=== PATIENT | female | born 2000 | race Caucasian/White ===

== ENCOUNTER 2022-12-23 21:50 | Emergency (ER) | payer BC ==
--- OUTSIDE RECORDS SUMMARY | 2022-12-23 21:54 | XMS REPORT | Continuity of Care Document ---
:2000 Author Organization [facility] t Address [address] [facility] [address] [place] [address] Care Team Providers Name Role Phone [email or web address]_Jacinto Attending Clinician Unavailable Danial Garcia Attending Clinician [phone] Jamie VANG, Nita Constantino Attending Clinician [phone] NITA AYALA Attending Clinician Unavailable GERARD_[email or web address]_Jacinto Admitting Clinician Unavailable Payers Payer Name Policy Type Policy Number Effective Date Expiration Date S carine [place]: BS [id number] 2020 2022 00:00:00 [place] (PP[place] 00:00:00 Problems Condition Condition Condition Status Onset Resolution Last Treating Co mments Source Name Details Category Date Date Treatment Clinician Date Hypothyroi Hypothyroi Problem Active 2020-03 [facility] dism dism 04-03 Medical 00:00: 00 Anxiety Anxiety Problem Active 2020-03 [facility] 04-03 [facility] 00:00: 00 Posttrauma Posttrauma Problem Active 2020-03 [facility] tic stress tic Stress 04-03 Me dical disorder Disorder 00:00: 00 Depressive Depressive Problem Active 2020-03 [facility] disorder Disorder 17 Medica l 00:00: 00 Attention Attention Problem Active 2020-03 [facility] via deficit Deficit 04-03 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 Social History Social Habit Start Date Stop Date Quantity Comments Source Exposure to Not sure Lisette fofana SARS-CoV-2 (event) Sex Assigned At [birth year] F Lisette finleyold 00:00:00 00:00:00 Smoking Status Start Date Stop Date Source Tobacco smoking consumption unknown Lisette Trinidad Never Smoker [facility] Medications Ordered Filled Start Stop Current Ordering Indication Dosage Frequency Signature Comments Components Source Medication Medication Date Date Medication? Clinician (SIG) Name Name hydrOXYzine Yes [id number] 25mg QD Take 1 Lisette HCl 25 MG 9-16 tablet (25 Seyb old oral Tablet 00:00: mg total) 00 by mouth nightly as needed for itching Levothyroxi Yes [id number] 50ug Take 1 Lisette ne Sodium 9-16 tablet (50 Seyb old 50 MCG oral 00:00: mcg total) Tablet 00 by mouth daily Sertraline Yes [id number] 100mg Take 1 Lisette HCl 100 MG 9-16 tablet Seybold oral Tablet 00:00: (100 mg 00 total) by mouth daily sertraline sertraline No sertraline [facility] 100 mg 100 mg 100 mg Medical tablet TAKE tablet TAKE tablet 1 TABLET BY 1 TABLET BY TAKE 1 MOUTH EVERY MOUTH EVERY TABLET BY DAY FOR 90 DAY FOR 90 MOUTH DAYS DAYS EVERY DAY FOR 90 DAYS sertraline sertraline No sertraline [facility] 50 mg 50 mg 50 mg Medical tablet TAKE tablet TAKE tablet 1 TABLET BY 1 TABLET BY TAKE 1 MOUTH ONCE MOUTH ONCE TABLET BY A DAY A DAY MOUTH ONCE TOGETHER TOGETHER A DAY WITH 100 MG WITH 100 MG TOGETHER 90 90 WITH 100 MG 90 Amphetamine Amphetamine No Amphetamin [facility] Salt Combo Salt Combo e Salt M edical Combo azithromyci azithromyci No azithromyc [facility] n 500 mg n 500 mg in 500 mg Me dical tablet tablet tablet Belsomra 20 Belsomra 20 No Belsomra [facility] mg tablet mg tablet 20 mg Medi troy tablet dextroamphe dextroamphe No dextroamph [facility] tamine-amph tamine-amph etamine-am Medical etamine 20 etamine 20 phetamine mg tablet 1 mg tablet 1 20 mg TABLET TABLET tablet 1 ORALLY ONCE ORALLY ONCE TABLET A DAY TAKE A DAY TAKE ORALLY WITH WITH ONCE A DAY ADDERALL XR ADDERALL XR TAKE WITH 30MG 90 30MG 90 ADDERALL DAYS DAYS XR 30MG 90 DAYS dextroamphe dextroamphe No dextroamph [facility] tamine-amph tamine-amph etamine-am Medical etamine 30 etamine 30 phetamine mg tablet mg tablet 30 mg TAKE 1 TAKE 1 tablet TABLET BY TABLET BY TAKE 1 MOUTH EVERY MOUTH EVERY TABLET BY DAY DAY MOUTH EVERY DAY dextroamphe dextroamphe No dextroamph [facility] tamine-amph tamine-amph etamine-am Medical etamine ER etamine ER phetamine 20 mg 24hr 20 mg 24hr ER 20 mg capsule,ext capsule,ext 24hr end release end release capsule,ex tend release dextroamphe dextroamphe No dextroamph [facility] tamine-amph tamine-amph etamine-am Medical etamine ER etamine ER phetamine 30 mg 24hr 30 mg 24hr ER 30 mg capsule,ext capsule,ext 24hr end release end release capsule,ex TAKE 1 TAKE 1 tend CAPSULE BY CAPSULE BY release MOUTH EVERY MOUTH EVERY TAKE 1 MORNING MORNING CAPSULE BY MOUTH EVERY MORNING doxycycline doxycycline No doxycyclin [facility] hyclate 100 hyclate 100 e hyclate Medical mg capsule mg capsule 100 mg TAKE 1 TAKE 1 capsule CAPSULE BY CAPSULE BY TAKE 1 MOUTH TWICE MOUTH TWICE CAPSULE BY A DAY FOR A DAY FOR MOUTH 10 DAYS 10 DAYS TWICE A DAY FOR 10 DAYS hydroxychlo hydroxychlo No hydroxychl [facility] roquine 200 roquine 200 oroquine Medical mg tablet mg tablet 200 mg tablet ivermectin ivermectin No ivermectin [facility] 3 mg tablet 3 mg tablet 3 mg M edical TAKE 4 TAKE 4 tablet TABLETS TABLETS TAKE 4 DAILY FOR 5 DAILY FOR 5 TABLETS DAYS DAYS DAILY FOR 5 DAYS levothyroxi levothyroxi No levothyrox [facility] ne 75 mcg ne 75 mcg ine 75 mcg Medical tablet TAKE tablet TAKE tablet 1 TABLET BY 1 TABLET BY TAKE 1 MOUTH EVERY MOUTH EVERY TABLET BY DAY IN THE DAY IN THE MOUTH MORNING ON MORNING ON EVERY DAY EMPTY EMPTY IN THE STOMACH FOR STOMACH FOR MORNING ON 90 DAYS 90 DAYS EMPTY STOMACH FOR 90 DAYS levothyroxi levothyroxi No levothyrox [facility] ne 88 mcg ne 88 mcg ine 88 mcg Medical tablet TAKE tablet TAKE tablet 1 TABLET BY 1 TABLET BY TAKE 1 MOUTH EVERY MOUTH EVERY TABLET BY DAY IN THE DAY IN THE MOUTH MORNING ON MORNING ON EVERY DAY EMPTY EMPTY IN THE STOMACH FOR STOMACH FOR MORNING ON 90 DAYS 90 DAYS EMPTY STOMACH FOR 90 DAYS Mirena 20 Mirena 20 No 1device Mirena 20 [facility] mcg/24 mcg/24 (s) mcg/24 Medical hours (7 hours (7 hours (7 yrs) 52 mg yrs) 52 mg yrs) 52 mg intrauterin intrauterin intrauteri e device e device ne device Take 1 Take 1 Take 1 device by device by device by intrauterin intrauterin intrauteri e route as e route as ne route directed directed as for 1 day. for 1 day. directed for 1 day. multivitami multivitami No multivitam [facility] n n in Medical sertraline sertraline No sertraline [facility] 100 mg 100 mg 100 mg Medical tablet TAKE tablet TAKE tablet 1 TABLET BY 1 TABLET BY TAKE 1 MOUTH EVERY MOUTH EVERY TABLET BY DAY FOR 90 DAY FOR 90 MOUTH DAYS DAYS EVERY DAY FOR 90 DAYS sertraline sertraline No sertraline [facility] 50 mg 50 mg 50 mg Medical tablet TAKE tablet TAKE tablet 1 TABLET BY 1 TABLET BY TAKE 1 MOUTH ONCE MOUTH ONCE TABLET BY A DAY A DAY MOUTH ONCE TOGETHER TOGETHER A DAY WITH 100 MG WITH 100 MG TOGETHER 90 90 WITH 100 MG 90 Amphetamine Amphetamine No Amphetamin [facility] Salt Combo Salt Combo e Salt M edical Combo azithromyci azithromyci No azithromyc [facility] n 500 mg n 500 mg in 500 mg Me dical tablet tablet tablet Belsomra 20 Belsomra 20 No Belsomra [facility] mg tablet mg tablet 20 mg Medi troy tablet dextroamphe dextroamphe No dextroamph [facility] tamine-amph tamine-amph etamine-am Medical etamine 20 etamine 20 phetamine mg tablet 1 mg tablet 1 20 mg TABLET TABLET tablet 1 ORALLY ONCE ORALLY ONCE TABLET A DAY TAKE A DAY TAKE ORALLY WITH WITH ONCE A DAY ADDERALL XR ADDERALL XR TAKE WITH 30MG 90 30MG 90 ADDERALL DAYS DAYS XR 30MG 90 DAYS dextroamphe dextroamphe No dextroamph [facility] tamine-amph tamine-amph etamine-am Medical etamine 30 etamine 30 phetamine mg tablet 1 mg tablet 1 30 mg TABLET TABLET tablet 1 ORALLY ONCE ORALLY ONCE TABLET A DAY DX A DAY DX ORALLY F90.9 TAKE F90.9 TAKE ONCE A DAY WITH XR WITH XR DX F90.9 30MG 30 30MG 30 TAKE WITH DAYS DAYS XR 30MG 30 DAYS dextroamphe dextroamphe No dextroamph [facility] tamine-amph tamine-amph etamine-am Medical etamine ER etamine ER phetamine 30 mg 24hr 30 mg 24hr ER 30 mg capsule,ext capsule,ext 24hr end release end release capsule,ex 1 CAPSULE 1 CAPSULE tend IN THE IN THE release 1 MORNING MORNING CAPSULE IN ORALLY ONCE ORALLY ONCE THE A DAY DX A DAY DX MORNING F90.9 30 F90.9 30 ORALLY DAYS DAYS ONCE A DAY DX F90.9 30 DAYS hydrocodone hydrocodone No hydrocodon [facility] 10 10 e 10 Medical mg-acetamin mg-acetamin mg-acetami ophen 325 ophen 325 nophen 325 mg tablet mg tablet mg tablet TAKE 1-2 TAKE 1-2 TAKE 1-2 TABLETS BY TABLETS BY TABLETS BY MOUTH EVERY MOUTH EVERY MOUTH 4 HOURS 4 HOURS EVERY 4 HOURS hydroxychlo hydroxychlo No hydroxychl [facility] roquine 200 roquine 200 oroquine Medical mg tablet mg tablet 200 mg tablet ivermectin ivermectin No ivermectin [facility] 3 mg tablet 3 mg tablet 3 mg M edical TAKE 4 TAKE 4 tablet TABLETS TABLETS TAKE 4 DAILY FOR 5 DAILY FOR 5 TABLETS DAYS DAYS DAILY FOR 5 DAYS levothyroxi levothyroxi No levothyrox [facility] ne 100 mcg ne 100 mcg ine 100 Medical tablet TAKE tablet TAKE mcg tablet 1 TABLET BY 1 TABLET BY TAKE 1 MOUTH EVERY MOUTH EVERY TABLET BY DAY IN THE DAY IN THE MOUTH MORNING ON MORNING ON EVERY DAY EMPTY EMPTY IN THE STOMACH FOR STOMACH FOR MORNING ON 90 DAYS 90 DAYS EMPTY STOMACH FOR 90 DAYS Mirena 20 Mirena 20 No 1device Mirena 20 [facility] mcg/24 mcg/24 (s) mcg/24 Medical hours (8 hours (8 hours (8 yrs) 52 mg yrs) 52 mg yrs) 52 mg intrauterin intrauterin intrauteri e device e device ne device Take 1 Take 1 Take 1 device by device by device by intrauterin intrauterin intrauteri e route as e route as ne route directed directed as for 1 day. for 1 day. directed for 1 day. multivitami multivitami No multivitam [facility] n n in Medical Vital Signs Vital Name Observation Time Observation Value Comments Source BP Diastolic 2022-02-14 00:00:00 76 mm[Hg] [facility] Hel[facility] kvng Height 2022-02-14 00:00:00 63 [in_i] [facility] ed[facility] BMI (Body Mass Index) 2022-02-14 00:00:00 26.9 kg/m2 [facility] BP Systolic 2022-02-14 00:00:00 113 mm[Hg] [facility] Body Weight 2022-02-14 00:00:00 152 [lb_av] [facility] ed[facility] Procedures Procedure Date / Time Performed Performing Clinician [facility] e Dilation and Curettage 2018-04-18 00:00:00 [facility] Oral Surgery Procedure [facility] Plan of Care Planned Activity Planned Date Details Comments Source Diagnostic Test 2022-02-14 [place] IgE Ab [facility] Helm edical Pending 00:00:00 [Units/volume] in Serum [code = 6195-2] Diagnostic Test 2022-02-14 Indirect antiglobulin [facility] Medical Pending 00:00:00 test.IgG specific reagent [Presence] in Serum or Plasma [code = 1005-8] Diagnostic Test 2022-02-14 HBsAg (hepatitis B [facility] Pending 00:00:00 surface Ag), serum [code = HBsAg (hepatitis B surface Ag), serum] Diagnostic Test 2022-02-14 HIV 1+2 AB + HIV 1 p24 [facility] Pending 00:00:00 Ag, qualitative immunoassay, serum [code = HIV 1+2 AB + HIV 1 p24 Ag, qualitative immunoassay, serum] Diagnostic Test 2022-02-14 RPR (rapid plasma [facility] Pending 00:00:00 reagin), serum [code = RPR (rapid plasma reagin), serum] Diagnostic Test 2022-02-14 hepatitis C Ab, serum [facility] Pending 00:00:00 [code = hepatitis C Ab, serum] Future Appointment 2023-02-14 Danial Garcia [address] [facility] 00:00:00 [place] [address] Encounters Start End Encounter Admission Attending Care Care Encounter Source Date/Time Date/Time Type Type Clinicians Facility Department ID 2022-02-14 2022-02-14 Outpatient _[facility]_ PRIV PRIV [id number] [facility] 00:00:00 00:00:00 Eddie [id number] Medic al 2022-02-14 2022-02-[address] - [facility] [id number] [facility] 00:00:00 00:00:00 [facility] Medic lopez Garcia GC_SWLISA_ : [address], [place] [address] , Ph. 2021-11-14 2021-11-14 Outpatient GC_[facility]_ PRIV PRIV [id number] [facility] 00:00:00 00:00:00 Eddie [id number] Medic al 2021-10-30 2021-10-30 Outpatient GC_[facility]_ PRIV PRIV [id number] [facility] 00:00:00 00:00:00 Eddie [id number] Medic al 2021-10-02 2021-10-02 Outpatient GC_[facility]_ PRIV PRIV [id number] [facility] 12:57:00 12:57:00 Eddie [id number] Medic al 2021-09-14 2021-09-14 Outpatient GC_[facility]_ PRIV PRIV [id number] [facility] 07:00:00 07:00:00 Eddie [id number] Medic al 2021-09-13 2021-09-13 Outpatient GC_[facility]_ PRIV PRIV [id number] [facility] 11:15:00 11:15:00 Eddie [id number] Medic al 2021-09-13 2021-09-13 Outpatient Jose, PRIV PRIV [id number] 00:00:00 00:00:00 Danial [id number] [place] [id number] 2021-09-13 2021-09-13 Danial [facility] 00:00:00 00:00:00 [facility] Medic al GERARD Garcia_MONIQUE_ : [address], [place] [address] , Ph. 2021-09-11 2021-09-11 Outpatient GC_[facility]_ PRIV PRIV [id number] [facility] 04:42:00 04:42:00 Eddie [id number] Medic al 2021-09-07 2021-09-07 Outpatient GC_[facility]_ PRIV PRIV [id number] [facility] 01:45:00 01:45:00 Eddie [id number] Medic al 2021-09-06 2021-09-06 Outpatient GC_[facility]_ PRIV PRIV [id number] [facility] 02:46:00 02:46:00 Eddie [id number] Medic al 2021-02-01 2021-02-01 Outpatient GC_[facility]_ PRIV PRIV [id number] [facility] 06:11:00 06:11:00 Eddie [id number] Medic al 2020-12-01 2020-12-01 [facility] Enzo Ayala [id number] Lisette 11:19:43 12:05:05 ne Nita Griffin [id number] Se samuel Jasonnela [id number] 2020-12-01 2020-12-01 Outpatient LISETTE AYALA [id number] Lisette 00:00:00 00:00:00 NITA fofana Results Test Description Test Time Test Comments Results Result Comments Source HPV DNA, genotypes 16+18, genital 2021-02-24 00:00:00 Test Item Value Reference Range Interpretation Comme nts HPV high risk DNA (non 16/18) (test code = HPV high not detected no t detected risk DNA (non 16/18)) HPV high risk DNA type 16 (test code = HPV high risk not detected n ot detected DNA type 16) HPV high risk DNA type 18 (test code = HPV high risk not detected n ot detected DNA type 18) [facility] [id number] 00:00:00 Test Item Value Reference Range Interpretation Comments LMP date: (test code = 02/01/2021 LMP date:) Pap, liquid-based asc-US nilm A (test code = Pap, liquid-based) source (liquid-based cervical (which cytology): (test code includes endocervical) = source (liquid-based cytology):) [facility]
--- NOTE | 2022-12-23 22:30 | RAD REPORT ---
EXAM DESCRIPTION: RAD - Chest Pa And Lat (2 Views) - 12/23/2022 10:25 pm CLINICAL HISTORY: CHEST PAIN COMPARISON: <Comparisons> FINDINGS: Lines: None. Lungs: No evidence of edema or pneumonia. Pleural: No significant pleural effusions or pneumothorax. Cardiac: The heart size is within normal limits. Mediastinum: Within normal limits. Bones: No acute fractures. Other: None IMPRESSION: No acute cardiopulmonary disease.
[2022-12-23 22:33] LABS: Absolute Lymphocytes (CBC) 4.1 K/uL (0.7-4.9); Hematocrit 43.7 % (36.0-45.0); Lymphocytes % 46.2 % (15.3-44.8); MCV 81.8 fL (80-100); MPV 9.1 fL (7.6-11.3); Platelets 252 thou/uL (152-406); RBC Red Blood Cell Count 5.34 M/uL (3.86-4.86)
[2022-12-23] MEDS ORDERED: ASPIRIN 81 MG CHEWABLE TABLET ONE (22:49)
[2022-12-23] MEDS ORDERED: NA CHLORIDE 0.9% 500 ML ONE (22:50)
[2022-12-23 22:52] LABS: Bilirubin Direct 0.2 mg/dL (0-0.2); Bilirubin Indirect, Calculated 0.4 mg/dL (0.2-0.8); Bilirubin Total 0.6 mg/dL (0.2-1.0); Magnesium 2.1 mg/dL (1.6-2.4); Potassium 3.1 mEq/L (3.5-5.1); Protein, Total 7.3 g/dL (6.4-8.2); Troponin High Sensitivity 3.3 pg/mL (<58.9)
[2022-12-23 23:25] LABS: Blood Morphology Comment NOT SEEN (NOT SEEN); Platelet Estimate ADEQ
[2022-12-23 23:32] LABS: Barbiturates NEGATIVE (NEGATIVE); Benzodiazepines NEGATIVE (NEGATIVE); Cocaine NEGATIVE (NEGATIVE); METHAMPHETAM POSITIVE (NEGATIVE); Opiates NEGATIVE (NEGATIVE); Phencyclidine NEGATIVE (NEGATIVE); THC Cannibis POSITIVE (NEGATIVE)
[2022-12-23] MEDS ORDERED: POTASSIUM 25 MEQ EFFERV TAB ONE (23:32)
[2022-12-23 23:33] LABS: Urine Bacteria None Seen /HPF (<20); Urine Bilirubin NEGATIVE (Negative); Urine Blood Negative (Negative); Urine Clarity Turbid (Clear); Urine Color Light-Yellow (Yellow); Urine Glucose NEGATIVE (Negative); Urine Mucus 1+ /HPF (None Seen); Urine Protein NEGATIVE (Negative); Urine RBC None Seen /HPF (None Seen); Urine Urobilinogen Normal (Normal); Urine pH 5.5 (5.0-7.0)
[2022-12-24 00:02] LABS: Methadone ND (NEGATIVE)
--- NOTE | 2022-12-24 00:45 | ER ---
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 Its a burning pain. 22:03 Coronavirus screen: At this time, the client does not indicate any symptoms associated jb4 with coronavirus-19. Ebola Screen: No symptoms or risks identified at this time. Initial Sepsis Screen: Does the patient meet any 2 criteria? No. Patient's initial sepsis screen is negative. Does the patient have a suspected source of infection? No. Patient's initial sepsis screen is negative. Risk Assessment: Do you want to hurt yourself or someone else? Patient reports no desire to harm self or others. Onset of symptoms was December 23, 2022. Transition of care: patient was not received from another setting of care. 22:03 Method Of Arrival: Wheelchair jb4 22:03 Acuity: YAN 3 jb4 Historical: - Allergies: 22:05 No Known Allergies; jb4 - PMHx: 22:05 Anxiety; depressive disorder; PTSD; skull fracture; jb4 - Family history:: not pertinent. Screenin/09 00:54 [facility] ED Fall Risk Assessment (Adult) History of falling in the last 3 months, jb4 including since admission No falls in past 3 months (0 pts) Confusion or Disorientation No (0 pts). Abuse screen: Denies threats or abuse. Nutritional screening: No deficits noted. Tuberculosis screening: No symptoms or risk factors identified. Assessment: 12/23 22:05 General: Appears distressed, uncomfortable, Behavior is calm, cooperative, appropriate jb4 for age. Pain: Complains of pain in chest Pain does not radiate. Pain currently is 8 out of 10 on a pain scale. Quality of pain is described as burning, Pain began 1 hour ago. 22:05 Neuro: Level of Consciousness is awake, alert, obeys commands, Oriented to person, jb4 place, time, situation. Cardiovascular: Patient's skin is warm and dry. Respiratory: Airway is patent Respiratory effort is even, unlabored, Respiratory pattern is regular, symmetrical. GI: No signs and/or symptoms were reported involving the gastrointestinal system. : No signs and/or symptoms were reported regarding the genitourinary system. EENT: No signs and/or symptoms were reported regarding the EENT system. Derm: Skin is intact, Skin is pink, warm \T\ dry. Musculoskeletal: Circulation, motion, and sensation intact. Range of motion: intact in all extremities. 23:37 Reassessment: Patient appears in no apparent distress at this time. Patient and/or jb4 family updated on plan of care and expected duration. Pain level reassessed. Patient is alert, oriented x 3, equal unlabored respirations, skin warm/dry/pink. Patient states feeling better. 12/24 00:54 Reassessment: Patient appears in no apparent distress at this time. Patient and/or jb4 family updated on plan of care and expected duration. Pain level reassessed. Patient is alert, oriented x 3, equal unlabored respirations, skin warm/dry/pink. Vital Signs: 12/23 22:11 BP 146 / 89; Pulse 120; Resp 17 S; Temp 98.8(O); Pulse Ox 98% on R/A; Weight 61.23 kg; rv1 Height 5 ft. 3 in. ; Pain 12/25; 23:37 BP 111 / 70; Pulse 79; Resp 16; Pulse Ox 98% on R/A; jb4 12/24 00:54 BP 108 / 64; Pulse 68; Resp 16; Pulse Ox 98% on R/A; jb4 12/23 22:11 Body Mass Index 23.91 (61.23 kg, 160.02 cm) rv1 12/23 22:11 Pain Scale: Adult rv1 ED Course: 12/23 21:59 Patient arrived in ED. jj6 22:06 Landon Bean MD is Attending Physician. ata 22:06 Ad Mayfield, RN is Primary Nurse. bp 22:26 Chest Pa And Lat (2 Views) XRAY In Process Unspecified. EDMS 22:37 UDS Sent. oe 22:37 PREGU Sent. oe 22:37 Urinalysis w/ reflexes Sent. oe 23:31 Triage completed. jb4 12/24 00:17 CT Chest For PE Angio In Process Unspecified. EDMS 00:54 No provider procedures requiring assistance completed. IV discontinued, intact, jb4 bleeding controlled, No redness/swelling at site. Pressure dressing applied. Patient maintains SpO2 saturation greater than 95% on room air. 00:54 Patient has correct armband on for positive identification. Placed in gown. Bed in low jb4 position. Call light in reach. Side rails up X 1. Side rails up X2. Client placed on continuous cardiac and pulse oximetry monitoring. NIBP monitoring applied. assembly press operator on. Administered Medications: 12/23 22:48 Drug: Aspirin PO Chewable Tablet 81 mg PO once Route: PO; jb4 22:48 Drug: NS 0.9% IV 500 ml IV at bolus once Route: IV; Rate: bolus; Site: right jb4 antecubital; 23:28 Drug: Potassium PO Effervescent Tablet 50 mEq PO once; dissolve in 4 ounces of water or bp juice Route: PO; Medication: 12/24 00:54 VIS not applicable for this client. jb4 Outcome: 00:44 Discharge ordered by MD. berumen 00:54 Discharged to home ambulatory, with significant other, jb4 00:54 Condition: stable 00:54 Discharge instructions given to patient, Instructed on discharge instructions, follow up and referral plans. medication usage, Demonstrated understanding of instructions, follow-up care, medications, Prescriptions given X 3, 00:58 Patient left the ED. jb4 Signatures: Dispatcher [employer] EDFL Landon Bean MD MD cha Bryson, James, RN RN jb4 Luis Manuel Carcamo Brian, VERNON RN Patria Owen6 Jessica Cai rv1
--- NOTE | 2022-12-24 00:45 | EDPHYS ---
[facility] Name: Serene Roberts Age: 22 yrs Sex: Female : 2000 Arrival Date: 12/23/2022 Time: 21:50 Bed 5 Private MD: ED Physician Landon Bean HPI: 12/23 23:02 This 22 yrs old Female presents to ER via Unassigned with complaints of Chest ata Pain, Shortness Of Breath. 23:02 The patient or guardian reports chest pain that is located primarily in the substernal ata area, anterior chest wall, bilaterally. The pain does not radiate. Associated signs and symptoms: Pertinent positives: shortness of breath. The chest pain is described as sharp. Duration: The patient or guardian reports multiple episodes, that wax and wane. Modifying factors: The symptoms are alleviated by remaining still, the symptoms are aggravated by cough, deep breath, movement. Severity of pain: At its worst the pain was mild in the emergency department the pain is unchanged. The patient has not experienced similar symptoms in the past. Historical: - Allergies: 22:05 No Known Allergies; jb4 - PMHx: 22:05 Anxiety; depressive disorder; PTSD; skull fracture; jb4 - Family history:: not pertinent. ROS: 23:02 Constitutional: Negative for fever, chills, and weight loss, Eyes: Negative for injury, ata pain, redness, and discharge, ENT: Negative for injury, pain, and discharge, Neck: Negative for injury, pain, and swelling, Abdomen/GI: Negative for abdominal pain, nausea, vomiting, diarrhea, and constipation, Back: Negative for injury and pain, : Negative for injury, bleeding, discharge, and swelling, MS/Extremity: Negative for injury and deformity, Skin: Negative for injury, rash, and discoloration, Neuro: Negative for headache, weakness, numbness, tingling, and seizure, Psych: Negative for depression, anxiety, suicide ideation, homicidal ideation, and hallucinations, Allergy/Immunology: Negative for hives, rash, and allergies, Endocrine: Negative for neck swelling, polydipsia, polyuria, polyphagia, and marked weight changes, Hematologic/Lymphatic: Negative for swollen nodes, abnormal bleeding, and unusual bruising, 23:02 Cardiovascular: Positive for chest pain, 23:02 Respiratory: Positive for cough, shortness of breath, Exam: 23:02 Constitutional: This is a well developed, well nourished patient who is awake, alert, ata and in no acute distress. Head/Face: Normocephalic, atraumatic. Eyes: Pupils equal round and reactive to light, extra-ocular motions intact. Lids and lashes normal. Conjunctiva and sclera are non-icteric and not injected. Cornea within normal limits. Periorbital areas with no swelling, redness, or edema. ENT: Nares patent. No nasal discharge, no septal abnormalities noted. Tympanic membranes are normal and external auditory canals are clear. Oropharynx with no redness, swelling, or masses, exudates, or evidence of obstruction, uvula midline. Mucous membranes moist. Neck: Trachea midline, no thyromegaly or masses palpated, and no cervical lymphadenopathy. Supple, full range of motion without nuchal rigidity, or vertebral point tenderness. No Meningismus. Chest/axilla: Normal chest wall appearance and motion. Nontender with no deformity. No lesions are appreciated. Cardiovascular: Regular rate and rhythm with a normal S1 and S2. No gallops, murmurs, or rubs. Normal PMI, no JVD. No pulse deficits. Respiratory: Lungs have equal breath sounds bilaterally, clear to auscultation and percussion. No rales, rhonchi or wheezes noted. No increased work of breathing, no retractions or nasal flaring. Abdomen/GI: Soft, non-tender, with normal bowel sounds. No distension or tympany. No guarding or rebound. No evidence of tenderness throughout. Back: No spinal tenderness. No costovertebral tenderness. Full range of motion. Skin: Warm, dry with normal turgor. Normal color with no rashes, no lesions, and no evidence of cellulitis. MS/ Extremity: Pulses equal, no cyanosis. Neurovascular intact. Full, normal range of motion. Neuro: Awake and alert, GCS 15, oriented to person, place, time, and situation. Cranial nerves II-XII grossly intact. Motor strength 5/5 in all extremities. Sensory grossly intact. Cerebellar exam normal. Normal gait. Psych: Awake, alert, with orientation to person, place and time. Behavior, mood, and affect are within normal limits. 23:02 ECG was reviewed by the Attending Physician. Vital Signs: 22:11 BP 146 / 89; Pulse 120; Resp 17 S; Temp 98.8(O); Pulse Ox 98% on R/A; Weight 61.23 kg; rv1 Height 5 ft. 3 in. ; Pain 10/; 23:37 BP 111 / 70; Pulse 79; Resp 16; Pulse Ox 98% on R/A; jb4 12/24 00:54 BP 108 / 64; Pulse 68; Resp 16; Pulse Ox 98% on R/A; jb4 12/23 22:11 Body Mass Index 23.91 (61.23 kg, 160.02 cm) rv1 12/23 22:11 Pain Scale: Adult rv1 MDM: 12/23 22:07 Patient medically screened. ata 23:07 Differential diagnosis: abnormal EKG, acute myocardial infarction, acute pericarditis, ata anxiety, chest wall pain, Cholelithiasis costochondritis, esophagitis, gastritis, pancreatitis, peptic ulcer disease, pericarditis, pleurisy, pneumonia, pulmonary embolus, stable angina, thoracic aortic disection, unstable angina. HEART Score: History: Slightly Suspicious (0), ECG: Normal (0), Age: < or = 45 years (0), Risk Factors: No Risk Factors Known (0), Troponin: < or = 1 x Normal Limit (0), Total Score = 0. MAIKOL Risk Score: TOTAL SCORE = 0. Data reviewed: vital signs, nurses notes, lab test result(s), EKG, radiologic studies, CT scan, plain films. Consideration of Admission/Observation Escalation of care including admission/observation considered. I considered the following discharge prescriptions or medication management in the emergency department Medications were administered in the Emergency Department. See MAR. Independent interpretation of the following test(s) in the Emergency Department EKG: See my EKG interpretation above. Test considered but Not performed: Ultrasound no 2 d echo. Historians other than the Patient: Spouse/Significant Other: significat other. 12/23 22:07 Order name: Basic Metabolic Panel; Complete Time: 23:00 ata 12/23 21:07 Order name: CBC with Diff; Complete Time: 23:43 ata 12/23 21:07 Order name: D-Dimer; Complete Time: 23:17 ata 12/23 21:07 Order name: LFT's; Complete Time: 23:00 ata 10/08 22:07 Order name: Magnesium; Complete Time: 23:00 ata 12/23 22:07 Order name: NT PRO-BNP; Complete Time: 23:00 ata 12/23 22:07 Order name: Troponin HS; Complete Time: 23:00 ata 12/23 22:07 Order name: Urinalysis w/ reflexes; Complete Time: 23:43 ata 12/23 22:07 Order name: PREGU; Complete Time: 23:43 ata 12/23 22:07 Order name: UDS; Complete Time: 00:40 ata 12/23 22:40 Order name: Manual Differential; Complete Time: 23:43 EDMS 12/23 22:07 Order name: Chest Pa And Lat (2 Views) XRAY; Complete Time: 23:00 ata 12/23 23:01 Order name: CT Chest For PE Angio ata 12/23 22:07 Order name: EKG; Complete Time: 22:08 ata 12/23 22:07 Order name: Cardiac monitoring; Complete Time: 22:23 ata 12/23 22:07 Order name: EKG - Nurse/Tech; Complete Time: 22:23 ata 12/23 22:07 Order name: IV Saline Lock; Complete Time: 22:23 ata 12/23 22:07 Order name: Labs collected and sent; Complete Time: 22:23 ata 12/23 22:07 Order name: O2 Per Protocol; Complete Time: 22:23 ata 12/23 22:07 Order name: O2 Sat Monitoring; Complete Time: 22:23 ata 12/23 23:01 Order name: PO challenge: juice; Complete Time: 23:18 ata EC:02 Rate is 120 beats/min. Rhythm is regular. QRS [place] is Normal. [place] interval is normal. ata QRS interval is normal. QT interval is normal. No Q waves. T waves are Normal. No ST changes noted. Clinical impression: Sinus tachycardia and No evidence of ischemia. Interpreted by me. Reviewed by me. Administered Medications: 22:48 Drug: Aspirin PO Chewable Tablet 81 mg PO once Route: PO; jb4 22:48 Drug: NS 0.9% IV 500 ml IV at bolus once Route: IV; Rate: bolus; Site: right jb4 antecubital; 23:28 Drug: Potassium PO Effervescent Tablet 50 mEq PO once; dissolve in 4 ounces of water or bp juice Route: PO; Disposition Summary: 12/24/22 00:44 Discharge Ordered Notes: Location: Home [facility] Problem: new [facility] Symptoms: have improved [facility] Condition: Stable [facility] Diagnosis - Chest pain on breathing ata - Dyspnea ata - Hypokalemia ata - UTI/ Urinary tract infection, site not specified ata Followup: ata - With: Private Physician - When: 2 - 3 days - Reason: Recheck today's complaints, Continuance of care, Re-evaluation by your physician Discharge Instructions: - Discharge Summary Sheet ata - Nonspecific Chest Pain, Adult ata - Chest Wall Pain ata - Costochondritis ata - Urinary Tract Infection, Adult ata - Costochondritis, [id number] ata - Chest Wall Pain, [id number] ata - Nonspecific Chest Pain, Adult, [id number] ata - Pleurodynia [facility] Forms: - Medication Reconciliation Form [facility] - Thank You Letter [facility] - Antibiotic Education ata - Prescription Opioid Use ata - Patient Portal Instructions [facility] - Leadership Thank You Letter [facility] Prescriptions: - Cipro 250 mg Oral tablet - take 1 tablet ORAL route every 12 hours; 14 tablet; Refills: 0, Product [facility] Selection Permitted - Pepcid 20 mg Oral tablet - take 1 tablet ORAL route every 12 hours for 21 days; 42 tablet; Refills: 0, [facility] Product Selection Permitted - Motrin IB 200 mg Oral tablet - take 2 tablet ORAL route every 6 hours As needed as needed with food; 30 ata tablet; Refills: 0, Product Selection Permitted Signatures: Dispatcher [employer] Landon Bradley MD MD cha Bryson, James, RN RN jb4 Ad Mayfield RN RN bp
[2022-12-24 01:11] VITALS: TEMP 98.8; O2SAT 98
[2022-12-24 01:13] VITALS: BP 108/64
--- NOTE | 2022-12-24 11:11 | RAD REPORT ---
EXAM DESCRIPTION: CT Angiography Chest With Intravenous Contrast CLINICAL HISTORY: CHEST PAIN TECHNIQUE: Axial computed tomographic angiography images of the chest with intravenous contrast. S agittal and coronal reformatted images were created and reviewed. This CT exam was performed using one or more of the following dose reduction techniques: automated exposure control, adjustment of t he mA and/or kV according to patient size, and/or use of iterative reconstruction technique. MIP reconstructed images were created and reviewed. COMPARISON: No relevant prior studies available. FINDINGS: Pulmonary arteries: Unremarkable. No pulmonary arterial filling defects. Aorta: No acute findings. No thoracic aortic aneurysm. Lungs: Unremarkable. No mass. No consolidation. Pleural space: Unremarkable. No significant effusion. No pneumothorax. Heart: Unremarkable. No cardiomegaly. No significant pericardial effusion. No evidence of RV dysfunction. Mediastinum: Soft tissue density in the anterior mediastinum thought to represent residual thymic t issue. Bones/joints: No acute fracture. No dislocation. Soft tissues: Unremarkable. Lymph nodes: Unremarkable. No enlarged lymph nodes. IMPRESSION: No pulmonary embolic disease. Electronically signed by: Sammie Suarez MD 12/24/2022 12:41 AM CDT Due to temporary technical issues with the PACS/Fluency reporting system, reports are being signed by the in house radiologist without review as a courtesy to ensure prompt reporting. The interpreting r adiologist is fully responsible for the content of the report.
--- NOTE | 2022-12-24 12:15 | EKG ---
Test Date: 2022-12-23 Test Time: 22:10:19 [employer]: SHAMAR MEASUREMENT RESULTS: Intervals: Rate: 120 WY: 124 QRSD: 86 QT: 312 QTc: 440 [place]: P: 74 WY: 124 QRS: 84 T: 28 INTERPRETIVE STATEMENTS: Sinus tachycardia Right atrial enlargement Borderline ECG No previous ECG available for comparison Electronically Signed On 12-24-22 12:14:16 CDT by Juan Carlos Barger
== END 2022-12-24 00:58 | disposition home or self-care (01) ==
LOC: ER 21:50
DX: R07.1 Chest pain on breathing (principal); E87.6 Hypokalemia; N39.0 Urinary tract infection, site not specified; R06.00 Dyspnea, unspecified; R05.9 Cough, unspecified
CPT/HCPCS: 93005; 85025; 81001; 80048; 36415; 83735; 81025; 85379; 80076; 84484; 83880; 80307; 71275; 71046; 99285; Q9967; J7040